=== PATIENT | female | born 1975 | race Two or more races ===

== ENCOUNTER 2020-03-12 07:24 | Day surgery (SDC) | payer OTHER ==
[~2020-03-12] VITALS: Ht 152.4 cm; Wt 77.1 kg
[~2020-03-12 07:24] MED LIST: AMLODIPINE BESYL5 MG PO; COZAAR100 MG PO
[2020-03-12] MEDS ORDERED: PERCOCET 5-3251 EACH PO (12:11)
== END 2020-03-12 14:40 | disposition home or self-care (01) ==
LOC: CIR.AMB 07:24
PROVIDERS: ATTEND Surgery
DX: D34 Benign neoplasm of thyroid gland (principal); Z20.828 Contact with and (suspected) exposure to other viral communicable diseases